=== PATIENT | female | born 1955 | race Caucasian/White ===

== ENCOUNTER 2016-05-22 16:45 | Emergency (ER) | payer SELFPAY ==
[2016-05-22 17:14] VITALS: BP 131/75
--- NOTE | 2016-05-22 17:37 | UC ---
Upper Extremity HPI - History of Current Complaint Chief Complaint: UCUpperExtremity Stated Complaint: ELBOW INJURY Time Seen by Provider: 05/22/16 17:18 Hx Obtained From: Patient Onset/Duration: Sudden Onset - No recent injuries. awoke on 05/13/16 with R arm/ elbow pain. saw her wide load escort who dx her with elbow tendonitis and she started PT (attended 3 times so far). feels PT is helping but not ready to return to work yet. she has been taking 200-400mg of ibuprofen once daily ( cannot joelle more) Severity Initially: Moderate Severity Currently: Moderate Location Of Pain: Is Discrete @ - R lateral elbow Character: Throbbing, Stiffness Aggravating Factor(s): Movement, Extension Alleviating Factor(s): Ice, Rest, Other: - PT Associated Signs And Symptoms: Positive: Negative - denies wrist pain, numbness/ tingling wrist or hand - Allergies/Home Medications Allergies/Adverse Reactions: Allergies Allergy/AdvReac Type Severity Reaction Status Date / Time Sulfa Drugs Allergy Intermediate Itching Verified 05/22/16 17:15 Home Medications: Home Medications Nystop 05/22/16 [History] PMH/Surg Hx/FS Hx/Imm Hx Previously Healthy: Yes Endocrine History Of: Denies: Diabetes, Thyroid Disease Cardiovascular History Of: Denies: Cardiac Disorders, Hypertension, Pacemaker/ICD Respiratory History Of: Denies: COPD, Asthma, Bronchitis GI/ History Of: Denies: Gastroesophageal Reflux, Ulcer, Renal Disease Neurological History Of: Denies: CVA, Dementia, Seizures Psychological History Of: Denies: Anxiety, Depression Cancer History Of: Denies: Breast Cancer Other History Of: Negative For: Anticoagulant Therapy - Surgical History Surgical History: Yes Surgery Procedure, Year, and Place: 1977- , 1991- tubal ligation, 1991 - Lt knee torn meniscus - Family History Known Family History: Positive: None - Social History Occupation: Employed Full-time - [employer] work Lives: With Family Alcohol Use: Occasionally Alcohol Amount: 6 GLASSES PER WEEK Substance Use Type: None Smoking Status (MU): Never Smoked Tobacco Have You Smoked in the Last Year: No Review of Systems Constitutional: Negative Skin: Negative Respiratory: Negative Cardiovascular: Negative Musculoskeletal: Other: - R elbow pain Neurological: Negative Psychological: Negative All Other Systems Reviewed And Are Negative: Yes Physical Exam Triage Information Reviewed: Yes Appearance: Well-Appearing, No Pain Distress, Obese Vital Signs: Initial Vital Signs Temp 97.7 F 05/22/16 17:10 Pulse 79 05/22/16 17:10 Resp 18 05/22/16 17:10 BP 131/75 05/22/16 17:10 Pulse Ox 100 05/22/16 17:10 Musculoskeletal: Positive: Other: - full ROM R elbow with pain on suppination, no swelling, no redness. has K2 tape applied to elbow from PT Neurological Exam: Normal Psychological Exam: Normal Skin Exam: Normal Upper Extremity Course/Dx - Differential Dx/Diagnosis Differential Diagnosis/HQI/PQRI: Arthritis, Strain, Sprain Provider Diagnoses: Lat epicondylitis L elbow Discharge - Discharge Plan Condition: Good Disposition: HOME Patient Education Materials: Tennis Elbow (ED) Forms: *Work Release Referrals: Bharath Lowe MD [Primary Care Provider] - 2 Days (for recheck) Additional Instructions: continue to follow-up with physical therapy. Follow-up with Dr. Lowe as planned Tuesday
== END 2016-05-22 17:48 | disposition home or self-care (01) ==
LOC: UCEAST 16:45
DX: M77.12 Lateral epicondylitis, left elbow (principal); Z88.2 Allergy status to sulfonamides
CPT/HCPCS: 99211; G0463

== ENCOUNTER 2017-06-24 08:13 | Emergency (ER) | payer OTHER ==
[2017-06-24 08:25] VITALS: BP 124/79
--- NOTE | 2017-06-24 09:05 | RAD ---
INDICATION: Atraumatic right knee pain and swelling COMPARISON: None TECHNIQUE: 4 view radiograph of the right knee. FINDINGS: The visualized bones are well-corticated and properly aligned. Degenerative changes of the right knee include narrowing of the medial compartment with marginal osteophyte formation. There is no radiographic evidence of joint effusion. There is no acute fracture, dislocation or other focal bony abnormality. IMPRESSION: Mild degenerative changes of the right knee without radiographically apparent acute findings. If the patient's symptoms persist, follow-up imaging is recommended.
[2017-06-24] MEDS ORDERED: Ketorolac INJ* 60 MG/2 ML VIAL IM ONE (09:07)
--- NOTE | 2017-06-24 13:38 | UC ---
Anupam Nguyen Thomas, scribed for Jg Kessler MD on 06/24/17 at 0833 . Lower Extremity/Ankle HPI - HPI Summary HPI Summary: The patient is a 62 year old female complaining of intermittent right knee pain for the last two months. For the last couple of days, the pain has increased to the point where she has difficulty walking. There is no history of trauma or heavy living, just an increase in ambulation. - History of Current Complaint Chief Complaint: UCLowerExtremity Stated Complaint: KNEE PAIN Time Seen by Provider: 06/24/17 08:15 Hx Obtained From: Patient Onset/Duration: Lasting Weeks, Still Present, Worse Since - last few days Severity Currently: Moderate Pain Intensity: 5 Pain Scale Used: 0-10 Numeric Aggravating Factor(s): Ambulation Alleviating Factor(s): Nothing - Allergies/Home Medications Allergies/Adverse Reactions: Allergies Allergy/AdvReac Type Severity Reaction Status Date / Time hydroxychloroquine Allergy Rash Verified 06/24/17 08:27 Sulfa (Sulfonamide Allergy Hives Verified 06/24/17 08:22 Antibiotics) Home Medications: Home Medications Ibuprofen 400 mg PO Q6H PRN 06/24/17 [History Confirmed 06/24/17] Levothyroxine TAB* [Synthroid 25 MCG TAB*] 25 mcg PO 0800 06/24/17 [History Confirmed 06/24/17] PMH/Surg Hx/FS Hx/Imm Hx Previously Healthy: Yes - NEGATIVE: [place], [place] Other History Of: Negative For: Anticoagulant Therapy - Surgical History Surgical History: Yes Surgery Procedure, Year, and Place: 1977- , 1991- tubal ligation, 1991 - Lt knee torn meniscus - Family History Known Family History: Positive: Hypertension - Social History Alcohol Use: Occasionally Alcohol Amount: weekends Substance Use Type: None Smoking Status (MU): Never Smoked Tobacco Have You Smoked in the Last Year: No Review of Systems Constitutional: Negative - fever Musculoskeletal: Other: - Right knee pain Is Patient Immunocompromised?: No All Other Systems Reviewed And Are Negative: Yes Physical Exam - Summary Physical Exam Summary: VITAL SIGNS: Reviewed. GENERAL: Patient is a well-developed and nourished female who is lying comfortable in the stretcher. Patient is not in any acute respiratory distress. HEAD AND FACE: Normocephalic EYES: PERRLA, EOMI x 2. EARS: Hearing grossly intact. MOUTH: Oropharynx within normal limits. NECK: Supple, trachea is midline, no adenopathy, no JVD, no carotid bruit. CHEST: Symmetric, no tenderness at palpation LUNGS: Clear to auscultation bilaterally. No wheezing or crackles. CVS: Regular rate and rhythm, S1 and S2 present, no murmurs or gallops appreciated. ABDOMEN: Soft, non-tender. Bowel sounds are normal. No abdominal abnormal pulsations. EXTREMITIES: She does not have any ecchymosis, hematoma, or deformities to her right knee. Drawer test is negative. Full ROM in all major joints, no edema, no cyanosis or clubbing. NEURO: Alert and oriented x 3. No acute neurological deficits. Speech is normal and follows commands. SKIN: Dry and warm Triage Information Reviewed: Yes Vital Signs: Initial Vital Signs Temp 96.6 F 06/24/17 08:21 Pulse 69 06/24/17 08:21 Resp 16 06/24/17 08:21 BP 124/79 06/24/17 08:21 Pulse Ox 99 06/24/17 08:21 Vital Signs Reviewed: Yes Diagnostics - Radiology Knee XR Xray Interpretation: No Acute Changes - IMPRESSION: Mild degenerative changes of the right knee without radiographically apparent acute findings. If the patient's symptoms persist, follow-up imaging is recommended. Dr. Kessler has reviewed this report. Radiology Interpretation Completed By: Radiologist Lower Extremity Course/Dx - Course Course Of Treatment: The patient is a 62 year old female complaining of intermittent right knee pain for the last two months that has worsened in the last few days. There is no history of trauma or heavy living, just an increase in ambulation. Knee XR shows Mild degenerative changes of the right knee without radiographically apparent acute findings. The patient is diagnosed with arthritis and knee pain. The patient was instructed to follow up with primary care. The patient was found to have increased BP in UC. The patient will follow up with PCP for better control of BP. I discussed all the findings and test results with the patient. Patient was instructed to return to the urgent care or go to ER immediately if any of the symptoms return or worsen. Plan of care was discussed with the patient, and patient understands and agrees. All questions were answered to patient satisfaction. There were no further complaints or concerns. - Differential Dx/Diagnosis Provider Diagnoses: Arthritis, Knee Pain Discharge - Sign-Out/Discharge Documenting (check all that apply): Discharge - Discharge Plan Condition: Stable Disposition: HOME Patient Education Materials: Knee Pain (ED), Arthralgia (ED) Referrals: Bharath Lowe MD [Primary Care Provider] - Additional Instructions: FOLLOW UP WITH YOUR PRIMARY CARE PROVIDER WITHIN ONE WEEK FOR HIGH BLOOD PRESSURE NOTED TODAY. RETURN TO URGENT CARE OR THE EMERGENCY DEPARTMENT FOR ANY WORSENING OR NEW SYMPTOMS. The documentation as recorded by the Anupam valenzuela Thomas accurately reflects the service I personally performed and the decisions made by Checo domingo Walter, MD.
== END 2017-06-24 09:30 | disposition home or self-care (01) ==
LOC: UCEAST 08:13
DX: M25.561 Pain in right knee (principal); M17.11 Unilateral primary osteoarthritis, right knee; Z88.2 Allergy status to sulfonamides; Z88.8 Allergy status to other drugs, medicaments and biological substances
CPT/HCPCS: 96372; 99211; G0463; J1885

== ENCOUNTER 2018-02-26 16:33 | Emergency (ER) | payer OTHER ==
[2018-02-26 16:41] VITALS: BP 114/76
--- NOTE | 2018-02-26 16:56 | UC ---
Knee Pain HPI - HPI Summary HPI Summary: 62 yo female presents with RIGHT knee pain. She tells me that she has been having right knee pain for over a year and sees Dr. Son for arthritis in it. She has had hyalgan injections, cortisone injections, PT, and NSAIDs with no relief of her pain. Today she was grocery shopping and felt a sharp pain across her knee joint, but denies injury. She went home and applied ice and took ibuprofen which helped a little, but is still painful. She is concerned she may have done something more to her knee as this pain is worse than normal. She is currently ambulatory without assistance. Denies numbness or tingling. She has an appointment with Dr. Son on 03/08/18 regarding her knee pain. - History of Current Complaint Chief Complaint: UCLowerExtremity Stated Complaint: KNEE PAIN Time Seen by Provider: 02/26/18 16:56 Hx Obtained From: Patient Onset/Duration: Gradual Onset Severity Initially: Moderate Severity Currently: Moderate Pain Intensity: 7 Pain Scale Used: 0-10 Numeric - Allergies/Home Medications Allergies/Adverse Reactions: Allergies Allergy/AdvReac Type Severity Reaction Status Date / Time hydroxychloroquine Allergy Rash Verified 02/26/18 16:41 Sulfa (Sulfonamide Allergy Hives Verified 02/26/18 16:41 Antibiotics) PMH/Surg Hx/FS Hx/Imm Hx Endocrine History: Hypothyroidism Other History Of: Negative For: Anticoagulant Therapy - Surgical History Surgical History: Yes Surgery Procedure, Year, and Place: 1977- , 1991- tubal ligation, 1991 - Lt knee torn meniscus - Family History Known Family History: Positive: Hypertension - Social History Lives: With Family Alcohol Use: Occasionally Alcohol Amount: weekends Substance Use Type: None Smoking Status (MU): Never Smoked Tobacco Have You Smoked in the Last Year: No Review of Systems All Other Systems Reviewed And Are Negative: Yes Constitutional: Positive: Negative Skin: Positive: Negative Respiratory: Positive: Negative Cardiovascular: Positive: Negative Neurovascular: Positive: Negative Musculoskeletal: Positive: Other: - Right knee pain Neurological: Positive: Negative Psychological: Positive: Negative Physical Exam - Summary Physical Exam Summary: GENERAL: NAD. WDWN. No pain distress. SKIN: No rashes, sores, lesions, or open wounds. CHEST: No accessory muscle use. Breathing comfortably and in no distress. CV: . Pulses intact popliteal, PT, and DP. Cap refill <2seconds MSK: RIGHT KNEE: Mild pain with extension. Mild patella crepitus. Strength 5/5. No edema or obvious bony deformities. Negative Magalis, A/P drawer, Sanjay, and varus/valgus stress. NEURO: Alert. Sensations intact and symmetric B/L LEs PSYCH: Age appropriate behavior. Triage Information Reviewed: Yes Vital Signs: Initial Vital Signs Temp 98.7 F 02/26/18 16:38 Pulse 80 02/26/18 16:38 Resp 16 02/26/18 16:38 BP 114/76 02/26/18 16:38 Pulse Ox 98 02/26/18 16:38 Vital Signs Reviewed: Yes Knee Pain Course/Dx - Course Course Of Treatment: XR: IMPRESSION: Degenerative changes medial compartment right knee. Discussed results with pt. Advised to continue NSAIDs and tylenol. RICE and keep f/u with Dr. Son for early march for further evaluation. - Differential Dx/Diagnosis Provider Diagnosis: Osteoarthritis of right knee Discharge - Sign-Out/Discharge Documenting (check all that apply): Patient Departure All imaging exams completed and their final reports reviewed: Yes - Discharge Plan Condition: Stable Disposition: HOME Patient Education Materials: Knee Pain (ED) Referrals: Bharath Lowe MD [Primary Care Provider] - Additional Instructions: If you develop a fever, shortness of breath, chest pain, new or worsening symptoms - please call your PCP or go to the ED. 1) Rest, Ice, and elevate your knee as much as possible to reduce pain 2) Keep your appointment with Dr. Son for 03/08/18 for further evaluation of your knee pain - Billing Disposition and Condition Condition: STABLE Disposition: Home
== END 2018-02-26 17:37 | disposition home or self-care (01) ==
LOC: UCEAST 16:33
DX: M17.11 Unilateral primary osteoarthritis, right knee (principal); Z88.8 Allergy status to other drugs, medicaments and biological substances; Z88.2 Allergy status to sulfonamides
CPT/HCPCS: 99211; G0463